=== PATIENT | male | born 1980 | race Caucasian/White ===

== ENCOUNTER 2022-10-24 16:17 | Observation (INO) | payer MEDICARE, OTHER ==
[2022-10-24 17:06] LABS: ALT (SGPT) 27 U/L (8-55); AST (SGOT) 24 U/L (5-34); Albumin 4.4 g/dL (3.5-5.0); Alkaline Phosphatase 122 U/L (40-110); Anion Gap 13 mmol/L (10-20); BUN (Urea Nitrogen) 28 mg/dL (8.9-20.6); Bilirubin, Total 0.6 mg/dL (0.2-1.2); Calc. Creatinine Clearance 0 mL/min (70-130); Calcium 9.6 mg/dL (7.8-10.44); Carbon Dioxide 25 mmol/L (22-29); Chloride 102 mmol/L (98-107); Estimated GFR 76; Globulin 2.8 g/dL (2.4-3.5); Glucose 110 mg/dL (70-105); Potassium 3.4 mmol/L (3.5-5.1); Protein, Total 7.2 g/dL (6.0-8.3); Sodium 137 mmol/L (136-145)
[2022-10-24 17:18] LABS: SARS-CoV-2 NAA Rapid Test Not Detected (NotDetected)
[2022-10-24 17:21] LABS: #Basophils 0.1 10x3/uL (0.0-0.2); #Eosinphils 0.2 10x3/uL (0.0-0.5); #Monocytes 0.5 10x3/uL (0.0-1.1); #Neutrophils 8.7 10x3/uL (1.5-8.4); %Basophils 0.5 % (0.0-2.0); %Eosinophils 1.5 % (0.0-6.0); %Lymphocytes 6.5 % (18.0-47.0); %Monocytes 4.9 % (0.0-10.0); %Neutrophils 86.2 % (40.0-75.0); Mean Corpuscular HGB CONC 34.8 g/dL (32.0-36.0); Mean Corpuscular Hemoglobin 31.2 pg (27.0-33.0); Mean Corpuscular Volume 89.6 fl (81.2-95.1); Mean Platelet Volume 9.5 fl (7.4-10.4); Platelet Count 110 10x3/uL (150-450); Red Blood Cell (RBC) Count 4.81 10x6/uL (4.32-5.72); White Blood Cell (WBC) Count 10.1 10x3/uL (3.5-10.5)
[2022-10-24 17:30] LABS: CKMB 4.7 ng/mL (0-6.6)
[2022-10-24] MEDS ORDERED: Aspirin Chewable 81 MG TAB ONE (17:59)
[2022-10-24 18:14] LABS: Bilirubin Neg (Negative); Blood, Urine 250 (Negative); Clarity Clear (Clear); Glucose, Urine (Dipstick) Normal (Negative); Ketone, Urine Negative (Negative); Leukocyte Negative (Negative); Nitrite Negative (Negative); Protein, Urine (Dipstick) 100 mg/dl (Neg-Trace); Urobilinogen Normal mg/dL (Less than 2)
[2022-10-24 18:41] LABS: Bacteria/HPF None Seen HPF (None Seen); RBC/HPF 0-3 HPF (0-3); Squamous Epithelial None Seen HPF (0-3); WBC/HPF None Seen HPF (0-3)
[2022-10-24] MEDS ORDERED: Potassium Chloride 20 MEQ TAB PO SCH (20:30)
[2022-10-24 20:37] LABS: CK (CPK) 163 U/L (30-200)
[2022-10-24 20:43] LABS: Troponin I 0.032 ng/mL (< 0.028)
[2022-10-24 23:01] LABS: Troponin I 0.028 ng/mL (< 0.028)
[2022-10-25] MEDS: Lactated Ringer's 1,000 ML IV SCH ×3 (02:00→23:07)
[2022-10-25] MEDS ORDERED: Potassium Chloride 20 MEQ TAB ONE ×2 (02:29→06:38)
[2022-10-25 03:44] LABS: #Eosinphils 0.3 10x3/uL (0.0-0.5); #Monocytes 0.5 10x3/uL (0.0-1.1); #Neutrophils 3.5 10x3/uL (1.5-8.4); %Basophils 0.6 % (0.0-2.0); %Eosinophils 5.5 % (0.0-6.0); %Lymphocytes 18.6 % (18.0-47.0); %Monocytes 9.7 % (0.0-10.0); %Neutrophils 65.4 % (40.0-75.0); Hemoglobin 14.6 g/dL (13.5-17.5); Mean Corpuscular HGB CONC 35.3 g/dL (32.0-36.0); Mean Corpuscular Hemoglobin 31.3 pg (27.0-33.0); Mean Corpuscular Volume 88.7 fl (81.2-95.1); Mean Platelet Volume 9.2 fl (7.4-10.4); Platelet Count 108 10x3/uL (150-450); RBC Distribution Width 13.2 % (11.5-14.5); Red Blood Cell (RBC) Count 4.67 10x6/uL (4.32-5.72); White Blood Cell (WBC) Count 5.3 10x3/uL (3.5-10.5)
[2022-10-25 03:48] LABS: Anion Gap 12 mmol/L (10-20); BUN (Urea Nitrogen) 25 mg/dL (8.9-20.6); Calc. Creatinine Clearance 97 mL/min (70-130); Calcium 9.7 mg/dL (7.8-10.44); Carbon Dioxide 26 mmol/L (22-29); Chloride 108 mmol/L (98-107); Estimated GFR 95; Glucose 104 mg/dL (70-105); Potassium 3.3 mmol/L (3.5-5.1); Sodium 143 mmol/L (136-145)
[2022-10-25] MEDS ORDERED: Potassium Chloride 20 MEQ TAB PO SCH ×2 (05:00→05:15)
[2022-10-25] MEDS: Ipratropium Oral Inhaler INH SCH ×4 (07:00→20:20)
[2022-10-25] MEDS: Aspirin 81 mg Enteric Coated Tablet PO SCH (08:48)
[2022-10-25] MEDS: Loratadine 10 MG TAB PO SCH (08:48)
[2022-10-25] MEDS: Trospium 20 MG TAB PO SCH ×2 (08:48→23:07)
[2022-10-25] MEDS: Losartan Potassium 50 MG TAB PO SCH (08:48)
[2022-10-25] MEDS: Enoxaparin Sodium 40 MG/0.4 ML SYRINGE SC SCH (08:48)
[2022-10-25] MEDS: Amlodipine 5 MG TAB PO SCH (08:48)
[2022-10-25] MEDS ORDERED: Ipratropium Bromide 2.5 ml Neb NEB SCH (21:15)
[2022-10-26] MEDS: Ipratropium Bromide 2.5 ml Neb NEB SCH ×2 (07:00→12:50)
[2022-10-26] MEDS: Losartan Potassium 50 MG TAB PO SCH (09:56)
[2022-10-26] MEDS: Enoxaparin Sodium 40 MG/0.4 ML SYRINGE SC SCH (09:56)
[2022-10-26] MEDS: Aspirin 81 mg Enteric Coated Tablet PO SCH (09:56)
[2022-10-26] MEDS: Amlodipine 5 MG TAB PO SCH (09:56)
[2022-10-26] MEDS: Trospium 20 MG TAB PO SCH (09:56)
[2022-10-26] MEDS: Loratadine 10 MG TAB PO SCH (09:56)
[2022-10-26] MEDS: Lactated Ringer's 1,000 ML IV SCH (09:57)
[2022-10-26 16:27] VITALS: BP 137/74; TEMP 98
== END 2022-10-26 16:20 | disposition home or self-care (01) ==
LOC: CSHERS 16:17 → CSHERHOLD 10-25 00:21 → CSHTELE 10-25 07:23
PROVIDERS: ADMIT Family Medicine; ATTEND Family Medicine
DX: R53.1 Weakness (principal); E87.6 Hypokalemia; D69.6 Thrombocytopenia, unspecified; Z20.822 Contact with and (suspected) exposure to COVID-19; I10 Essential (primary) hypertension; J45.909 Unspecified asthma, uncomplicated; Z87.74 Personal history of (corrected) congenital malformations of heart and circulatory system; Z79.82 Long term (current) use of aspirin; Z79.899 Other long term (current) drug therapy
CPT/HCPCS: 0240U; 71045; 80048; 82550; 82553; 83735; 84484 ×2; 85025; 85652; 87081; 87430; 93005 ×2; 93306; 94640; 94760; 97116 ×2; 99285; 36415; 80053; 81003; 81015; 84443; 93010; 96372; G0378; J1650; J7120